=== PATIENT | female | born 1995 ===

== ENCOUNTER 2023-10-28 10:53 | Outpatient (AMB) | payer OTHER, SELFPAY ==
[2023-10-28 11:50] VITALS: BP 137/80; PULSE 83; RESP 16; TEMP 37.2; O2SAT 0; BMI 22.4
--- NOTE | 2023-10-28 11:50 | AM.OFFWIN_ITS ---
Intake Vital Signs 10/28/23 11:50 Height 5 ft 4 in Weight 130 lb 4 oz BMI 22.4 BP 137/80 Blood Pressure Location Lt brachial Position Sitting Respiration 16 Pulse 83 Pulse Source Pulse Oximeter Temp 99 F Temp Source Oral Pulse Oximetry (%) 0 L Oxygen Delivery Method Room Air Intake Visit Reasons: sore throat Intake Note: Sore throat, body aches, cough, fatigue. Covid at home test negative this morning. Patient Tobacco Use Status: Never used Tobacco Is last menstrual period known: No Patient : No Allergies No Known Allergies Allergy (Verified 10/28/23 12:04) Medication List - Last Reconciled 10/28/23 by LIBAN Harrison- No Known Home Meds Do you need a note to return to daycare/school/sports/work: No HPI HPI Comments History of Present Illness Details Here today with the complaints of a sore throat that started on Tuesday night. Worse since onset. Painful swallowing associated with a mild cough. Denies any other constitutional symptoms. Use NSAIDs last night with mild relief. PFSH Social History Patient Tobacco Use Status: Never used Tobacco Patient : No Review of Systems Const All systems reviewed & are unremarkable except as noted in HPI and below Physical Exam Vital Signs: Last Vital Signs Temp 99 F 10/28/23 11:50 Pulse 83 10/28/23 11:50 Resp 16 10/28/23 11:50 BP 137/80 10/28/23 11:50 Pulse Ox 0 L 10/28/23 11:50 Oxygen Delivery Method Room Air 10/28/23 11:50 BMI result Body Mass Index 22.4 Const Other: Awake alert no acute distress Sclera conjunctiva clear bilat Diffuse erythema of pharynx without exudate, tonsils grade 1, uvula midline, managing secretions Speaking in full sentences Results AMB Rapid Strep AMB Rapid Strep Positive Last Edit by Tara Avelar CMA on 10/28/23 11:5 8 Results Reviewed Results Reviewed: Laboratory Last Values Strep Scn [facility] Positive 10/28/23 11:54 Assessment & Plan Assessment & Plan (1) Strep throat: Code(s): J02.0 - Streptococcal pharyngitis Plan: . (2) Sore throat: Code(s): J02.9 - Acute pharyngitis, unspecified Plan: . Plan . Orders: Orders AMB Rapid Strep Screen Today J02.9 - Acute pharyngitis, unspecified Medications: New amoxicillin-pot clavulanate 875-125 mg 1 tab PO BID 14 tabs 0RF 7 days Patient Instructions: Good hand hygiene and respiratory etiquette can reduce the spread of all types of group A strep infection. Hand hygiene is especially important after coughing and sneezing and before preparing foods or eating. Good respiratory etiquette involves covering your cough or sneeze. Do not share food or drinks. Treating an infected person with an antibiotic for 12 hours or longer limits their ability to transmit the bacteria. Thus, people with group A strep pharyngitis should stay home from work, school, or daycare until: They are afebrile AND At least 12?24 hours after starting appropriate antibiotic therapy I also recommend changing toothbrush and washing bed linen in hot water 24 hours after starting antibiotics Coding Level of Care Code Est Pt Level 3 (25761) Diagnoses Strep throat J02.0 Sore throat J02.9
== END 2023-10-28 13:42 | disposition home or self-care (01) ==
PROVIDERS: Visit Provider Nurse Practitioner Family
DX: J02.0 Streptococcal pharyngitis (principal); J02.9 Acute pharyngitis, unspecified
CPT/HCPCS: 87880; 99213